=== PATIENT | male | born 1975 | race Caucasian/White ===

== ENCOUNTER 2021-05-09 06:16 | Emergency (ER) | payer BC ==
[~2021-05-09] VITALS: Ht 177.8 cm; Wt 86.2 kg
--- NOTE | 2021-05-09 06:25 | NUR ---
pt bibself c/o left thumb lac from kitchen knife cutting a bagel.pt aaox4 breathing evenly and unlabored. pt attached to monitor and pox. emt at bedside for wound care. Md at bedside for eval. pt given blanket and call light within reach
[2021-05-09] MEDS ORDERED: LIDOCAINE 2% 20 ML MDV ONE (06:39)
[2021-05-09] MEDS ORDERED: TDAP [DIPH/PERTUSSIS/TET] 0.5 ML VIAL IM ONE ×2 (06:40→07:00)
[2021-05-09] MEDS ORDERED: LIDOCAINE 2% 20 ML MDV TP ONE (07:00)
[2021-05-09 07:26] VITALS: BP 158/96
== END 2021-05-09 07:26 | disposition home or self-care (01) ==
LOC: ER 06:18
DX: S61.012A Laceration without foreign body of left thumb without damage to nail, initial encounter (principal); Z60.2 Problems related to living alone; W26.0XXA Contact with knife, initial encounter; Y93.89 Activity, other specified; Y92.89 Other specified places as the place of occurrence of the external cause; Y99.8 Other external cause status
CPT/HCPCS: 12001; 90471; 90715; 99283; J3490